=== PATIENT | female | born 1960 | race Caucasian/White ===

== ENCOUNTER 2017-12-08 20:06 | Emergency (ER) | payer OTHER ==
[~2017-12-08] VITALS: Ht 165.1 cm; Wt 81.7 kg
[2017-12-08] MEDS ORDERED: SYNTHROID175 MCG PO (20:25)
[2017-12-08] MEDS ORDERED: LISINOPRIL5 MG (20:26)
[2017-12-08] MEDS ORDERED: METFORMIN HCL500 MG (20:26)
[2017-12-08] MEDS ORDERED: NORCO 5-325 TA1 EACH PO (21:23)
[2017-12-08] MEDS ORDERED: IBUPROFEN 800800 MG PO (21:23)
[2017-12-08 21:43] VITALS: BP 113/79
== END 2017-12-08 21:43 | disposition home or self-care (01) ==
LOC: M.ERS 20:06
DX: M25.511 Pain in right shoulder (principal); Z85.3 Personal history of malignant neoplasm of breast; Z90.710 Acquired absence of both cervix and uterus; Z90.49 Acquired absence of other specified parts of digestive tract